=== PATIENT | male | born 1965 | race Caucasian/White ===

== ENCOUNTER 2017-04-15 12:02 | Emergency (ER) | payer SELFPAY ==
[~2017-04-15] VITALS: Ht 170.2 cm; Wt 101.7 kg
[2017-04-15 12:04] VITALS: BP 161/92
== END 2017-04-15 13:27 | disposition home or self-care (01) ==
LOC: ED 13:02
DX: L03.115 Cellulitis of right lower limb (principal)
CPT/HCPCS: 82962; 99283